=== PATIENT | male | born 1945 | race African-American/Black ===

== ENCOUNTER 2021-07-22 16:56 | Emergency (ER) | payer MEDICARE, OTHER ==
[~2021-07-22] VITALS: Ht 180.3 cm; Wt 86.4 kg
[2021-07-22] MEDS ORDERED: TAMS0.4C97 PO (17:44)
[2021-07-22] MEDS ORDERED: TAMSULOSIN 0.4 MG CAP.ER.24H. PO ONE (17:45)
--- NOTE | 2021-07-22 17:45 | PHYS DOC ---
Past Medical History Past Medical History: Diabetes-Type II, High Cholesterol, Hypertension (COURTNEY VIERA MD) Past Surgical History: No Surgical History Additional Past Surgical Histo: TOE AMPUTATION (COURTNEY VIERA MD) Smoking Status: Former Smoker Alcohol Use: Occasionally Drug Use: None (COURTNEY VIERA MD) General Adult EDM: Chief Complaint: URINARY RETENTION HPI: HPI: Patient is a 76 year old Male who presents with 2 days of urinary retention. States he has not had a full void during that timeframe. He gets a few dribbles of urine at a time. Denies dysuria, flank pain, or fever. Denies history of UTI. States that he did have one previous episode of retention, but that it got better with some sort of medication. Unsure of the name of medication, but he does not currently take tamsulosin/Flomax. Denies any recent medication changes. Has never followed up with urologist before. He does have some suprapubic fullness/discomfort, but denies outright pain. (COURTNEY VIERA MD) Review of Systems: Review of Systems: Constitutional: Denies fever or chills. [] Eyes: Denies change in visual acuity. [] HENT: Denies nasal congestion or sore throat. [] Respiratory: Denies cough or shortness of breath. [] Cardiovascular: Denies chest pain or edema. [] GI: Denies abdominal pain, nausea, vomiting, bloody stools or diarrhea. [] : Reports urinary retention, suprapubic discomfort. Musculoskeletal: Denies back pain or joint pain. [] Integument: Denies rash. [] Neurologic: Denies headache, focal weakness or sensory changes. [] Endocrine: Denies polyuria or polydipsia. [] Lymphatic: Denies swollen glands. [] Psychiatric: Denies depression or anxiety. [] (COURTNEY VIERA MD) Heart Score: C/O Chest Pain: No Risk Factors: Risk Factors: DM, Current or recent (<one month) smoker, HTN, HLP, family history of CAD, obesity. Risk Scores: Score 0 - 3: 2.5% MACE over next 6 weeks - Discharge Home Score 4 - 6: 20.3% MACE over next 6 weeks - Admit for Clinical Observation Score 7 - 10: 72.7% MACE over next 6 weeks - Early Invasive Strategies (COURTNEY VIERA MD) Allergies: Allergies: Allergies Coded Allergies Type Severity Reaction Last Updated Verified No Known Drug Allergies 08/16/16 No (COURTNEY VIERA MD) Physical Exam: PE: Constitutional: Well developed, well nourished, no acute distress, non-toxic appearance. [] HENT: Normocephalic, atraumatic, bilateral external ears normal, oropharynx moist, no oral exudates, nose normal. [] Eyes: PERRLA, EOMI, conjunctiva normal, no discharge. [] Neck: Normal range of motion, no tenderness, supple, no stridor. [] Cardiovascular:Heart rate regular rhythm, no murmur [] Lungs & Thorax: Bilateral breath sounds clear to auscultation [] Abdomen: Mild suprapubic tenderness to palpation. Skin: Warm, dry, no erythema, no rash. [] Back: No tenderness, no CVA tenderness. [] Extremities: No tenderness, no cyanosis, no clubbing, ROM intact, no edema. [] Neurologic: Alert and oriented X 3, normal motor function, normal sensory function, no focal deficits noted. [] Psychologic: Affect normal, judgement normal, mood normal. [] (COURTNEY VIERA MD) Current Patient Data: Vital Signs: Vital Signs Date Time Temp Pulse Resp B/P (MAP) Pulse Ox O2 Delivery O2 Flow Rate FiO2 07/22/21 17:15 98.0 74 20 150/94 (112) 100 Room Air 98.0 (COURTNEY VIERA MD) EKG: EKG: [] (COURTNEY VIERA MD) Radiology/Procedures: Radiology/Procedures: [id number] ultrasound shows a large, distended bladder. Bilateral kidneys visualized with no evidence of hydronephrosis. [] (COURTNEY VIERA MD) Course & Med Decision Making: Course & Med Decision Making Pertinent Labs and Imaging studies reviewed. (See chart for details) Patient is 76-year-old male presents with 2 days of urinary retention. Ultrasound shows large distended bladder without evidence of hydronephrosis. Denies any dysuria, flank pain, or fever to suggest UTI/pyelonephritis, but will obtain UA to screen for infection. He has a history of similar, but is not on any tamsulosin, and has not established with a urologist. We will place a Florez catheter for his urinary retention and provide with urology follow-up. Tamsulosin prescription sent to pharmacy. -- Signed out to oncoming provider with placement of florez and UA pending. (COURTNEY VIERA MD) Course & Med Decision Making 1800: Assumed care from Dr. Viera at this time Patient's current medical course discussed in rounds and patient is currently updated with medical plan Patient's urine as below, will treat with Levaquin for complicated UTI, patient was discharged in stable condition Laboratory Tests Test 07/22/21 18:15 Urine Collection Type U cath Urine Color Latham Urine Clarity Clear Urine pH 6.0 (<5.0-8.0) Urine Specific Statham 1.020 (1.000-1.030) Urine Protein 30 mg/dL (NEG-TRACE) Urine Glucose (UA) Negative mg/dL (NEG) Urine Ketones (Stick) Trace mg/dL (NEG) Urine Blood Negative (NEG) Urine Nitrite Positive (NEG) Urine Bilirubin Negative (NEG) Urine Urobilinogen Dipstick 1.0 mg/dL (0.2 mg/dL) Urine Leukocyte Esterase Small (NEG) Urine RBC Occ /HPF (0-2) Urine WBC Occ /HPF (0-4) Urine Bacteria Few /HPF (0-FEW) (YOVANNY WHITT DO) Jairon Disclaimer: Jairon Disclaimer: This electronic medical record was generated, in whole or in part, using a voice recognition dictation system. (COURTNEY VIERA MD) Departure Departure Impression: Primary Impression: Urinary retention Disposition: 01 HOME / SELF CARE / HOMELESS Condition: STABLE Referrals: UNKNOWN PCP NAME (PCP) Patient Instructions: Urinary Retention, Acute, Male Additional Instructions: You will need to follow-up with urology group. He will need to keep the catheter in place until you can be seen by urologist. You may need a primary care doctor referral to see a urologist, but you can try calling one of the urology groups first to establish an appointment. Please take the medication tamsulosin, 1 tab daily to help increase urinary flow through the prostate. If you develop fever/chills, flank pain, clogged catheter or other new/concerning symptoms please return to the emergency department for reevaluation. Please call one of the follow practice locations for urology follow up. [facility] / [place], [place] [address] [place], [place] [id number] [place] [address] [place] [address] [place] [address] [facility], [address] [place] [address] Scripts Levofloxacin (LEVOFLOXACIN) 750 Mg Tablet 1 TAB PO DAILY, #7 TAB Prov: YOVANNY WHITT DO 07/22/21 Tamsulosin Hcl (FLOMAX) 0.4 Mg Cap.er.24h 1 CAP PO DAILY for 30 Days, #30 CAP 1 Refill Prov: COURTNEY VIERA MD 07/22/21 COURTNEY VIERA MD Jul 22, 2021 17:45 YOVANNY WHITT DO Jul 22, 2021 18:51
[2021-07-22 18:28] LABS: BILIRUBIN,URINE NEGATIVE (NEG); CLARITY,URINE CLEAR; COLOR,URINE ORANGE; NITRITE,URINE POSITIVE (NEG); PROTEIN,URINE 30 mg/dL (NEG-TRACE)
[2021-07-22 18:38] LABS: BACTERIA,URINE FEW /HPF (0-FEW); RBC,URINE OCC /HPF (0-2); WBC,URINE OCC /HPF (0-4)
[2021-07-22 18:48] VITALS: BP 147/89
[2021-07-22] MEDS ORDERED: LEVO750T5 PO (18:51)
== END 2021-07-22 19:25 | disposition home or self-care (01) ==
LOC: ER 16:56
DX: R33.9 Retention of urine, unspecified (principal); E11.9 Type 2 diabetes mellitus without complications; E78.00 Pure hypercholesterolemia, unspecified; I10 Essential (primary) hypertension; Z87.891 Personal history of nicotine dependence
CPT/HCPCS: 51702; 81001; 99284

== ENCOUNTER 2021-07-23 06:04 | Emergency (ER) | payer OTHER ==
[~2021-07-23] VITALS: Ht 180.3 cm; Wt 82.4 kg
[~2021-07-23 06:04] MED LIST: LEVO750T5 PO; TAMS0.4C97 PO
--- NOTE | 2021-07-23 07:56 | PHYS DOC ---
Past Medical History Past Medical History: Diabetes-Type II, High Cholesterol, Hypertension Past Surgical History: Other Additional Past Surgical Histo: TOE AMPUTATION Smoking Status: Former Smoker Alcohol Use: Occasionally Drug Use: None General Adult EDM: Chief Complaint: URINE CATHETER PROBLEM HPI: HPI: Patient is a 76 year old male who presents with catheter dislodgment. Was seen yesterday for urinary retention and had a Haas catheter placed and was provided with urology follow-up. His urine was infected he was given levofloxacin for a complicated UTI. He went to sleep with the catheter in place last night and woke up with this morning with dislodged. Does not recall how this happened. Denies any pain. No urethral blood. Has been unable to urinate since the catheter has come out. Review of Systems: Review of Systems: Constitutional: Denies fever or chills. [] Eyes: Denies change in visual acuity. [] HENT: Denies nasal congestion or sore throat. [] Respiratory: Denies cough or shortness of breath. [] Cardiovascular: Denies chest pain or edema. [] GI: Denies abdominal pain, nausea, vomiting, bloody stools or diarrhea. [] : Denies dysuria. Reports urinary catheter dislodged and urinary retention. [] Musculoskeletal: Denies back pain or joint pain. [] Integument: Denies rash. [] Neurologic: Denies headache, focal weakness or sensory changes. [] Endocrine: Denies polyuria or polydipsia. [] Lymphatic: Denies swollen glands. [] Psychiatric: Denies depression or anxiety. [] Heart Score: C/O Chest Pain: N/A Risk Factors: Risk Factors: DM, Current or recent (<one month) smoker, HTN, HLP, family history of CAD, obesity. Risk Scores: Score 0 - 3: 2.5% MACE over next 6 weeks - Discharge Home Score 4 - 6: 20.3% MACE over next 6 weeks - Admit for Clinical Observation Score 7 - 10: 72.7% MACE over next 6 weeks - Early Invasive Strategies Allergies: Allergies: Allergies Coded Allergies Type Severity Reaction Last Updated Verified No Known Drug Allergies 08/16/16 No Physical Exam: PE: Constitutional: Well developed, well nourished, no acute distress, non-toxic appearance. [] HENT: Normocephalic, atraumatic, bilateral external ears normal, oropharynx moist, no oral exudates, nose normal. [] Eyes: PERRLA, EOMI, conjunctiva normal, no discharge. [] Neck: Normal range of motion, no tenderness, supple, no stridor. [] Cardiovascular: Mild tachycardia, regular rhythm, no murmur [] Lungs & Thorax: Bilateral breath sounds clear to auscultation [] Abdomen: Bowel sounds normal, soft, no tenderness, no masses, no pulsatile masses. [] : Normal appearance of external genitalia. No blood at the meatus. Skin: Warm, dry, no erythema, no rash. [] Back: No tenderness, no CVA tenderness. [] Extremities: No tenderness, no cyanosis, no clubbing, ROM intact, no edema. [] Neurologic: Alert and oriented X 3, normal motor function, normal sensory function, no focal deficits noted. [] Psychologic: Affect normal, judgement normal, mood normal. [] EKG: EKG: [] Radiology/Procedures: Radiology/Procedures: [] Course & Med Decision Making: Course & Med Decision Making Pertinent Labs and Imaging studies reviewed. (See chart for details) Patient is 76-year-old male who presents with a dislodged urinary catheter, after it was placed yesterday for urinary retention. He is receiving treatment with levofloxacin for complicated UTI. Was given tamsulosin. No evidence of trauma from dislodgment. Urinary catheter was replaced without incident. Patient will be discharged with continued plan for urology follow-up. Jairon Disclaimer: Jairon Disclaimer: This electronic medical record was generated, in whole or in part, using a voice recognition dictation system. Departure Departure Impression: Primary Impression: Displacement of indwelling urinary catheter Disposition: 01 HOME / SELF CARE / HOMELESS Condition: STABLE Referrals: UNKNOWN PCP NAME (PCP) Additional Instructions: Please continue to take your antibiotic and tamsulosin. Remember to follow-up with a urologist and your primary care doctor. Please call one of the follow practice locations for urology follow up. [facility] / [place], [place] [address] [place] [address] [place] [address] [place] [address] [place] [address] [facility], [address] [place] [address] COURTNEY VIERA MD Jul 23, 2021 07:56
[2021-07-23 07:59] VITALS: BP 144/67
== END 2021-07-23 08:12 | disposition home or self-care (01) ==
LOC: ER 06:04
DX: T83.028A Displacement of other urinary catheter, initial encounter (principal); R33.9 Retention of urine, unspecified; E11.9 Type 2 diabetes mellitus without complications; E78.00 Pure hypercholesterolemia, unspecified; I10 Essential (primary) hypertension; Z87.891 Personal history of nicotine dependence; Y84.6 Urinary catheterization as the cause of abnormal reaction of the patient, or of later complication, without mention of misadventure at the time of the procedure; Y92.89 Other specified places as the place of occurrence of the external cause
CPT/HCPCS: 51702; 99284